=== PATIENT | female | born 1985 | race Hispanic/Latino ===

== ENCOUNTER 2017-06-17 12:46 | Emergency (ER) | payer SELFPAY ==
[2017-06-17] MEDS ORDERED: KETOROLAC TROMETHAMINE 60 MG/2 ML VIAL ONE (13:11)
== END 2017-06-17 13:35 | disposition home or self-care (01) ==
LOC: EDH 12:46
DX: M79.621 Pain in right upper arm (principal); W22.8XXA Striking against or struck by other objects, initial encounter; Y93.89 Activity, other specified; Y92.69 Other specified industrial and construction area as the place of occurrence of the external cause; Y99.8 Other external cause status
CPT/HCPCS: 96372; 99283; J1885

== ENCOUNTER 2017-07-27 13:29 | Emergency (ER) | payer OTHER ==
[2017-07-27 14:14] LABS: APPEARANCE,URINE CLOUDY (CLEAR); BILIRUBIN,URINE NEGATIVE (NEGATIVE); COLOR,URINE YELLOW (YELLOW); GLUCOSE, URINE (UA) NEGATIVE (NEGATIVE); KETONES,URINE NEGATIVE (NEGATIVE); LEUKOCYTE ESTERASE ,URINE MODERATE (NEGATIVE); NITRATE,URINE NEGATIVE (NEGATIVE); OCCULT BLOOD,URINE LARGE (NEGATIVE); PROTEIN,URINE 100 (NEGATIVE)
[2017-07-27 14:32] LABS: BACTERIA,URINE Moderate /HPF (None Seen); WBC,URINE >100 /HPF (0-1)
[2017-07-27] MEDS ORDERED: LIDOCAINE HCL-MPF 1% 2ML VIAL ONE (15:11)
[2017-07-27] MEDS ORDERED: CEFTRIAXONE SODIUM 1 GM ONE (15:12)
[2017-07-27] MEDS ORDERED: PHENAZOPYRIDINE HCL 200 MG TABLET ONE (15:12)
== END 2017-07-27 15:24 | disposition home or self-care (01) ==
LOC: EDH 13:29
DX: N39.0 Urinary tract infection, site not specified (principal); Z98.890 Other specified postprocedural states
CPT/HCPCS: 81001; 81025; 87088; 87186; 96372; 99284; J0696; J3490

== ENCOUNTER 2020-07-12 18:58 | Emergency (ER) | payer SELFPAY ==
[2020-07-12] MEDS ORDERED: ACETAMINOPHEN-CODEINE 300/30MG TAB ONE (19:15)
[2020-07-12 19:41] LABS: APPEARANCE,URINE Cloudy (CLEAR); BILIRUBIN,URINE Negative (NEGATIVE); COLOR,URINE Dark Yellow (YELLOW); GLUCOSE, URINE (UA) Negative (NEGATIVE); KETONES,URINE >=160 mg/dL (NEGATIVE); LEUKOCYTE ESTERASE ,URINE Moderate (NEGATIVE); NITRATE,URINE Positive (NEGATIVE); OCCULT BLOOD,URINE Moderate (NEGATIVE); PH,URINE 5.5 (5.0-8.0); PROTEIN,URINE POS 2+ mg/dL (NEGATIVE)
[2020-07-12 19:41] LABS: BASOPHILS % (AUTO) 0.2 % (0.0-5.0); EOSINOPHILS % (AUTO) 0.1 % (0.0-8.0); HEMATOCRIT 32.5 % (36-48); LYMPHOCYTES % (AUTO) 4.7 % (21.0-51.0); MEAN CORPUSCULAR HEMOGLOBIN 22.8 pg (27.0-33.0); MEAN CORPUSCULAR HGB CONC 30.2 g/dL (32.0-36.0); MEAN CORPUSCULAR VOLUME 75.6 fL (79-99); MONOCYTES % (AUTO) 11.3 % (3.0-13.0); NEUTROPHILS % (AUTO) 83.3 % (40.0-77.0); PLATELET COUNT (AUTO) 335 K/uL (130-400); RED CELL DISTRIBUTION WIDTH 20.2 % (11.0-15.5)
[2020-07-12 19:44] LABS: HCG,QUAL RESULT NEGATIVE (NEGATIVE)
[2020-07-12 19:54] LABS: CREATININE 0.7 mg/dL (0.5-1.5); POTASSIUM 3.3 mmol/L (3.5-5.1)
[2020-07-12 19:58] LABS: BILIRUBIN,TOTAL 0.7 mg/dL (0.2-1.0); TOTAL PROTEIN, SERUM 8.3 g/dL (6.0-8.3)
[2020-07-12 20:03] LABS: BACTERIA,URINE Moderate /HPF (None Seen); MUCUS,URINE Few LPF (None Seen); SQUAMOUS EPITHELIAL CELL,UR 0-2 /HPF (0-2)
[2020-07-12 20:04] LABS: RAPID GROUP A STREP NEGATIVE (NEGATIVE)
[2020-07-12] MEDS ORDERED: CEFTRIAXONE SODIUM 1 GM ONE (20:46)
[2020-07-12] MEDS ORDERED: POTASSIUM BICARB/CIT AC 25 MEQ TABLET.EFF ONE (20:46)
== END 2020-07-12 21:24 ==
LOC: EDH 18:58
DX: N30.00 Acute cystitis without hematuria (principal); J06.9 Acute upper respiratory infection, unspecified; Z20.822 Contact with and (suspected) exposure to COVID-19
CPT/HCPCS: 36415; 71045; 80053; 81001; 81025; 85025; 87077; 87088; 87186; 87426; 87804 ×2; 87880; 96374; 99284; J0696; U0003